=== PATIENT | male | born 1950 | race Caucasian/White ===

== ENCOUNTER 2022-02-25 10:58 | Emergency (ER) | payer OTHER ==
[2022-02-25] MEDS ORDERED: Lidocaine 1% 5 ML VIAL INJECT ONE (11:25)
[2022-02-25] MEDS ORDERED: Bacitracin Oint 1 GM U/D Packet TOP ONE (11:32)
[2022-02-25] MEDS ORDERED: LIDOCAINE 1% INFILT ONE ×2 (12:15)
[2022-02-25] MEDS ORDERED: SODIUM BICARBONATE INFILT ONE ×2 (12:15)
[2022-02-25] MEDS ORDERED: Diphtheria,Pertussis(Acell),Tetanus Vaccine 0.5 ML Syringe IM ONE (12:50)
== END 2022-02-25 13:01 | disposition home or self-care (01) ==
LOC: JP.ED 10:58
DX: S51.011A Laceration without foreign body of right elbow, initial encounter (principal); I25.10 Atherosclerotic heart disease of native coronary artery without angina pectoris; I10 Essential (primary) hypertension; Z72.0 Tobacco use; Z95.1 Presence of aortocoronary bypass graft; Z79.899 Other long term (current) drug therapy; W10.9XXA Fall (on) (from) unspecified stairs and steps, initial encounter; Y92.002 Bathroom of unspecified non-institutional (private) residence as the place of occurrence of the external cause
CPT/HCPCS: 12002; 99282